=== PATIENT | male | born 1980 | race Two or more races ===

== ENCOUNTER 2018-01-13 10:49 | Emergency (ER) | payer MEDICAID, OTHER ==
[2018-01-13 10:53] VITALS: BP 135/84
[2018-01-13] MEDS ORDERED: FLUORESCEIN SODIUM 1 MG STRIP OP ONE (10:59)
[2018-01-13] MEDS ORDERED: PROPARACAINE 0.5% 15 ML OPHT DROP OP ONE (10:59)
--- NOTE | 2018-01-13 11:14 | EDPHY ---
H & P Time Seen by Provider: 01/13/18 10:58 HPI/ROS: CHIEF COMPLAINT: Foreign body right eye HISTORY OF PRESENT ILLNESS: 37-year-old male states that last evening while wearing safety glasses he was grinding metal felt foreign object enter his right eye. He is able to visualize a foreign object on his right eye. Denies visual acuity changes. No corrective lens use history PRIMARY CARE PROVIDER: REVIEW OF SYSTEMS: 10 systems reviewed and are negative with exception of illness mentioned in the history of present illness PHYSICAL EXAM (Prior to examination, patient consented to physical exam, hands were washed and my usual and customary physical exam procedures followed) 1) GENERAL: Well-developed, well-nourished, alert and oriented. Appears to be in no acute distress. 2) HEAD: Normocephalic 3) HEENT: sclera anicteric 4) OCULAR EXAM: Visual Acuity: Right eye 20/50, left eye 20/30, both eyes 20/40 Pupils:equal round and reactive to light EOMI Lids: no edema or swelling, upper and lower lids were everted and no foreign bodies were visualized, no areas of increased fluorescein uptake. Skin: no proptosis, no periorbital erythema or swelling, no vesicles, no pain with extraocular movements. Conjunctivae: not injected, no discharge, negative Murray test. Cornea: Metallic appearing foreign body at the 7 o'clock position which is easily removed with a Q-tip however there is a remaining rust ring in place. exam with fluorescein shows area of increased uptake at same location consistent with corneal abrasion Anterior chamber:normal, no hyphema or hypopyon Smoking Status: Current every day smoker Constitutional: Initial Vital Signs Temperature (C) 36.9 C 01/13/18 10:51 Heart Rate 80 01/13/18 10:51 Respiratory Rate 16 01/13/18 10:51 Blood Pressure 135/84 H 01/13/18 10:51 O2 Sat (%) 98 01/13/18 10:51 O2 Delivery Mode Room Air Allergies/Adverse Reactions: No Known Allergies Allergy (Verified 08/25/12 17:36) Home Medications: Medication Instructions Recorded Ofloxacin 0.3% [Ocuflox 0.3%] 2 drops EACHEYE QID #1 opht.btl 01/13/18 MDM/Departure - MDM Medications Given: Discontinued Medications Fluorescein Sodium (Bioglo) 1 mg OP EDNOW ONE Stop: 01/13/18 11:00 Last Admin: 01/13/18 11:12 Dose: 1 mg Proparacaine HCl (Alcaine 0.5%) 1 drops OP EDNOW ONE Stop: 01/13/18 11:00 Last Admin: 01/13/18 11:12 Dose: 1 btl ED Course/Re-evaluation: 11:13 a.m.: Consultation with Dr. Moise Mackey regarding the patient's remaining rust ring who agrees to see the patient in the office at this time. I saw this patient independently based on established practice protocols. Care of patient under supervision of secondary supervising physician Dr Knott . - Depart Disposition: Home, Routine, Self-Care Clinical Impression: Corneal rust ring of right eye Condition: Good Instructions: Eye Foreign Body (ED) Additional Instructions: Go directly to Dr. Moise aMckey office Prescriptions: Ofloxacin 0.3% [Ocuflox 0.3%] 2 drops EACHEYE QID #1 opht.btl Referrals: Moise Mackey MD [Medical Doctor] - As per Instructions (Go directly to Dr. Moise Mackey office on the hospital campus here)
== END 2018-01-13 11:25 | disposition home or self-care (01) ==
DX: S05.01XA Injury of conjunctiva and corneal abrasion without foreign body, right eye, initial encounter (principal); Y93.89 Activity, other specified